=== PATIENT | male | born 1955 | race Caucasian/White ===

== ENCOUNTER → 2016-09-28 | Outpatient (CLI) | payer BC | LOC: KOH-I 08:38 | DX: M13.80 Other specified arthritis, unspecified site (principal); R93.7 Abnormal findings on diagnostic imaging of other parts of musculoskeletal system; S83.512A Sprain of anterior cruciate ligament of left knee, initial encounter; M17.12 Unilateral primary osteoarthritis, left knee; M94.262 Chondromalacia, left knee | CPT/HCPCS: 73721 ==

== ENCOUNTER → 2020-12-01 | Outpatient (CLI) | payer OTHER, BC | LOC: RAD 17:58 | DX: M54.2 Cervicalgia (principal); M25.561 Pain in right knee; M47.812 Spondylosis without myelopathy or radiculopathy, cervical region; M50.321 Other cervical disc degeneration at C4-C5 level; W19.XXXA Unspecified fall, initial encounter | CPT/HCPCS: 71046; 72040; 73562 ==